=== PATIENT | female | born 1970 | race Two or more races ===

== ENCOUNTER → 2020-02-25 | Outpatient (CLI) | payer MEDICARE, MEDICAID ==
[~2020-02-25] MED LIST: ASCO-316 PO; ATOR40TA70 PO; BENA40TA9 PO; BERBERINE PO; CYCL25PO21 PO; CYCL30DR BOTHEYE; DIPH25CA83 PO; DIVA250T4 PO; DOCU-272 PO; ESCI5TAB PO; FERR325T6 PO; GABA-529 PO; HYDR-2510 PO; HYDR-4001 PO; IBUP-2741 PO; INSU100I33 SQ; INSU3INS8 SUBCUT; LATA2.5D2 BOTHEYE; MEDR10TA11 PO; MELO-104 PO; MULT1TAB76 PO; PRAZ2CAP2 PO; PROP1DRO4 BOTHEYE; TOPUD PO; [UNRECOGNIZED DRUG - OTHER] PO; glucocil PO
== END | disposition home or self-care (01) ==
LOC: LAB 10:28
PROVIDERS: ATTEND Obstetrics & Gynecology
DX: Z20.828 Contact with and (suspected) exposure to other viral communicable diseases (principal)
CPT/HCPCS: 87426

== ENCOUNTER 2020-02-28 06:02 | Day surgery (SDC) | payer MEDICARE, MEDICAID ==
[~2020-02-28] VITALS: Ht 149.9 cm; Wt 70.3 kg
[2020-02-28 06:50] LABS: BASOPHILS % 0.5 % (0.0-2.0); HEMATOCRIT. 41.2 % (36.0-48.0); HEMOGLOBIN. 13.8 g/dL (12.0-16.0); LYMPHOCYTES % 22.3 % (20.0-50.0); MEAN CORPUSCULAR VOLUME 92.3 fL (81.0-99.0); MEAN PLATELET VOLUME 7.7 fl (7.4-10.4); MONOCYTES % 5.9 % (2.0-8.0); NEUTROPHILS % 70.3 % (40.0-76.0); PLATELET 339 x1000/uL (130-400); RED BLOOD CELL COUNT 4.46 mill/uL (4.2-5.4); RED CELL DISTRIBUTION WIDTH 13.1 % (11.6-14.6)
[2020-02-28 06:57] LABS: CHLORIDE 106 mEq/L (98-107)
[2020-02-28] MEDS ORDERED: INSULIN REGULAR (HUMULIN R) 300UNITS/3ML VIAL SUBCUT SCH (07:00)
[2020-02-28 07:07] LABS: CLARITY URINE CLEAR (CLEAR); COLOR URINE YELLOW (YELLOW); KETONES URINE 2+ (NEGATIVE); LEUKOCYTE ESTERASE URINE NEGATIVE (NEGATIVE); NITRITE URINE NEGATIVE (NEGATIVE); OCCULT BLOOD URINE 3+ (NEGATIVE); PROTEIN URINE 1+ (NEGATIVE); SPECIFIC GRAVITY URINE 1.021 (1.005-1.030); UROBILINOGEN URINE 0.2 E.U./dL (0.2-1.0)
[2020-02-28 07:20] LABS: UCG SCREEN NEGATIVE
[2020-02-28] MEDS ORDERED: INSULIN REGULAR (HUMULIN R) 300UNITS/3ML VIAL ONE ×2 (07:31→11:57)
[2020-02-28] MEDS ORDERED: HYDRALAZINE 20MG/ML VIAL ONE (07:32)
[2020-02-28] MEDS ORDERED: SODIUM CHLORIDE 0.9% 1,000 ML IV SCH (07:40)
[2020-02-28] MEDS ORDERED: HYDRALAZINE 20MG/ML VIAL IV SCH (07:45)
[2020-02-28] MEDS ORDERED: ACETAMINOPHEN 500MG TABLET ONE (11:58)
[2020-02-28] MEDS ORDERED: ACETAMINOPHEN 500MG TABLET PO NR (12:00)
[2020-02-28] MEDS ORDERED: INSULIN REGULAR (HUMULIN R) 300UNITS/3ML VIAL SUBCUT NR (12:00)
[2020-02-28] MEDS ORDERED: SKIN ADHESIVE 0.7 GM EA TOP ONE (12:57)
[2020-02-28] MEDS ORDERED: VASOPRESSIN 20 UNIT/ML 1ML ONE (12:58)
[2020-02-28] MEDS ORDERED: BUPIVACAINE HCL/PF 0.5% (5MG/ML) 10ML ONE ×2 (12:58→13:08)
[2020-02-28] MEDS ORDERED: FENTANYL CITRATE/PF 50MCG/ML 2ML VIAL ONE (13:06)
[2020-02-28] MEDS ORDERED: MIDAZOLAM HCL 2 MG/2 ML VIAL ONE (13:06)
[2020-02-28] MEDS ORDERED: CEFAZOLIN SODIUM 1000MG/VIAL ONE ×2 (13:07→13:11)
[2020-02-28] MEDS ORDERED: SODIUM CHLORIDE 0.9% 10ML VIAL ONE (13:07)
[2020-02-28] MEDS ORDERED: PROPOFOL 200MG/20ML VIAL IV ONE (13:07)
[2020-02-28] MEDS ORDERED: ROPIVACAINE HCL 10MG/ML 20 ML VIAL EPI ONE (13:12)
[2020-02-28] MEDS ORDERED: ROCURONIUM BROMIDE 10MG/ML VIAL 5ML IV ONE (13:23)
[2020-02-28] MEDS ORDERED: SUCCINYLCHOLINE CHLORIDE 200MG/10ML IV ONE (13:26)
[2020-02-28] MEDS ORDERED: DEXAMETHASONE 4MG/ML 1ML VIAL ONE (13:53)
[2020-02-28] MEDS ORDERED: ONDANSETRON HCL 4MG/2ML INJ ONE (13:53)
[2020-02-28] MEDS ORDERED: SODIUM CHLORIDE 0.9% 1,000 ML IV ONE (16:15)
[2020-02-28] MEDS ORDERED: MORPHINE SULFATE 2 MG/ML CPJ (NOT FOR IM USE) IV PRN (16:15)
[2020-02-28] MEDS ORDERED: ONDANSETRON HCL 4MG/2ML INJ IV PRN (16:15)
[2020-02-28] MEDS ORDERED: MEPERIDINE HCL/PF 25MG/ML CPJ IV PRN (16:15)
[2020-02-28] MEDS: MEPERIDINE HCL/PF 25MG/ML CPJ IV PRN ×2 (16:37→17:10)
[2020-02-28] MEDS: HYDROMORPHONE HCL/PF 2MG/ML CPJ IV PRN ×2 (17:00→17:40)
[2020-02-28] MEDS ORDERED: INSULIN REGULAR (HUMULIN R) 300UNITS/3ML VIAL IV NR (19:24)
[2020-02-28] MEDS ORDERED: HYDROCODONE/ACETAMINOPHEN 5/325MG TABLET PO PRN (20:45)
[2020-02-28 20:55] VITALS: BP 128/80
== END 2020-02-28 21:35 | disposition home or self-care (01) ==
LOC: OR 06:02
PROVIDERS: ATTEND Obstetrics & Gynecology
DX: N93.9 Abnormal uterine and vaginal bleeding, unspecified (principal); D25.9 Leiomyoma of uterus, unspecified; K66.0 Peritoneal adhesions (postprocedural) (postinfection); I25.10 Atherosclerotic heart disease of native coronary artery without angina pectoris; I10 Essential (primary) hypertension; E78.00 Pure hypercholesterolemia, unspecified; E11.9 Type 2 diabetes mellitus without complications; I25.2 Old myocardial infarction; G43.909 Migraine, unspecified, not intractable, without status migrainosus; Z79.899 Other long term (current) drug therapy; Z79.82 Long term (current) use of aspirin; Z79.84 Long term (current) use of oral hypoglycemic drugs; Z98.890 Other specified postprocedural states; Z91.040 Latex allergy status; Z88.2 Allergy status to sulfonamides; Z88.8 Allergy status to other drugs, medicaments and biological substances; Z88.1 Allergy status to other antibiotic agents
CPT/HCPCS: 36415; 58552; 80048; 81003; 81025; 82962; 85025; 86850; 86900; 86901; 88307; C1725; J0330; J0360; J0690; J1100; J1170; J1815; J2175; J2250; J2405; J2704; J2795; J3010; J3490; S2900; A4315